=== PATIENT | female | born 2005 | race Caucasian/White ===

== ENCOUNTER 2024-01-13 10:04 | Emergency (ER) | payer BC, SELFPAY ==
--- NOTE | ~2024-01-13 | US_ITS ---
EXAMINATION: US pelvic complete DATE: 01/13/2024 11:16 INDICATION: Ovarian torsion. TECHNIQUE: Multiple transabdominal sonographic images of the pelvis were obtained. COMPARISON: None. FINDINGS: The uterus measures 7.1 x 2.9 cm. There is physiologic free fluid in the pelvis. The endometrial comp sunshine measures 7 mm in thickness. The right ovary measures 2.5 x 1.5 x 2.0 cm. The left ovary measures 4.3 x 2.6 x 2.7 cm. There is normal vascular flow in the ovaries. IMPRESSION: 1. Normal pelvis. Reviewed, dictated and finalized at location A. INTERPRETIVE RANGER IMPRESSION: 1. Normal pelvis.
[2024-01-13 10:10] VITALS: BP 138/93; PULSE 98; RESP 16; TEMP 36.6; O2SAT 100
--- NOTE | 2024-01-13 10:31 | ED_ITS ---
HPI - General Adult General Chief complaint: Abdominal Pain Stated complaint: abd pain Time Seen by Provider: 01/13/24 10:17 History of Present Illness HPI narrative: 18-year-old female presenting to the emergency department for evaluation for lower abdominal pain. Patient reports that the pain started approximately 9:00 a.m. but has since begun to improve. Patient states she has had this pain multiple times before that typically last about an hour. Patient has no prior history of ovarian cyst. Patient states she did feel like she was going to pass out did have nausea due to the pain. Patient denies any actual syncope. Patient states the pain is improved. Patient denies any current nausea. Patient denies any history of constipation or diarrhea. At time of evaluation patient declined any medications for nausea for pain control Related Data Home Medications Medication Instructions Recorded Confirmed clobetasol 0.05 % scalp solution topical 01/13/24 Allergies Allergy/AdvReac Type Severity Reaction Status Date / Time No Known Allergies Allergy Verified 01/13/24 10:40 Review of Systems Review of Systems: All systems reviewed & are unremarkable except as noted in HPI and below Exam Narrative: APPEARANCE: Well appearing, no pain, no distress, well-nourished. HEAD: normocephalic, atraumatic. EYES: PERRLA/EOMI, conjunctivae clear. NOSE: Normal no drainage EARS:TMS clear with good light reflex. THROAT: Pharynx clear, no exudate. NECK: Supple. No adenopathy, no masses. RESPIRATORY: Airway patent, respirations nonlabored. Clear to auscultation bilaterally, no rales, rhonchi, wheezing. CARDIOVASCULAR: Regular rate and rhythm without murmurs rubs or gallops. ABDOMINAL: suprapubic abdominal tenderness to palpation, no CVA tenderness MUSCULOSKELETAL: Moves all extremities. Strength/ROM intact, No edema, No calf tenderness. NEURO: Alert. Cranial nerves II through XII intact. Good gait. Good coordination SKIN: Warm, dry. Normal Color Course Vital Signs Vital signs: Vital Signs Temperature 97.9 F 01/13/24 10:10 Pulse Rate 98 01/13/24 10:10 Respiratory Rate 16 01/13/24 10:10 Blood Pressure 138/93 H 01/13/24 10:10 Pulse Oximetry 100 01/13/24 10:10 Oxygen Delivery Room Air 01/13/24 10:10 Temperature 97.9 F 01/13/24 10:10 Pulse Rate 80 01/13/24 11:30 Respiratory Rate 16 01/13/24 11:30 Blood Pressure 110/69 01/13/24 11:30 Pulse Oximetry 100 01/13/24 11:30 Oxygen Delivery Room Air 01/13/24 10:10 Medical Decision Making MDM Narrative Medical decision making narrative: 18-year-old female presents emergency department for evaluation for evaluation for nausea vomiting and diarrhea. Patient did feel improved with treatment. Patient is afebrile with no leukocytosis and a stable hemoglobin of 15.2. No acute abnormalities on the CMP. UA was concerning for infection. ultrasound was negative for ovarian torsion. Patient was treated with antibiotics for underlying UTI. Patient family were updated on the results of the workup and they are comfortable plan for discharge and close follow-up Differential Diagnosis Differential Diagnosis: nausea, vomiting, diarrhea, , UTI, ovarian cyst, ovarian torsion Vital Signs Vital Signs: Vital Signs Temperature 97.9 F 01/13/24 10:10 Pulse Rate 98 01/13/24 10:10 Respiratory Rate 16 01/13/24 10:10 Blood Pressure 138/93 H 01/13/24 10:10 Pulse Oximetry 100 01/13/24 10:10 Oxygen Delivery Room Air 01/13/24 10:10 Temperature 97.9 F 01/13/24 10:10 Pulse Rate 80 01/13/24 11:30 Respiratory Rate 16 01/13/24 11:30 Blood Pressure 110/69 01/13/24 11:30 Pulse Oximetry 100 01/13/24 11:30 Oxygen Delivery Room Air 01/13/24 10:10 Lab Data Lab results reviewed: Yes I reviewed the patient's lab results. 01/13/24 10:16 01/13/24 10:16 Labs: Lab Results 01/13/24 01/13/24 Range/Units 10:16 10:25 WBC 8.2 (4.5-10.0) K/mm3 RBC 5.09 (4.2-5.4) M/mm3 Hgb 15.2 H (12.0-15.0) g/dL Hct 44.2 (37.0-47.0) % MCV 86.8 (80-100) fl MCH 29.9 (26-34) pg MCHC 34.4 (32-36) g/dl RDW 12.3 (11.5-14.5) % Plt Count 239 (150-375) k/mm3 MPV 9.8 (7.4-10.4) fl Immature Gran % (Auto) 0.2 (0-0.5) % Neut % (Auto) 73.3 H (45.5-73.1) % Lymph % (Auto) 15.3 L (18.3-44.2) % [place] % (Auto) 5.2 (2.6-8.5) % Eos % (Auto) 5.4 H (0-4.4) % Baso % (Auto) 0.6 (0.2-1.2) % Lymph # (Auto) 1.26 (0.9-3.2) K/mm3 [place] # (Auto) 0.4 (0.1-0.6) K/mm3 Eos # (Auto) 0.4 H (0-0.3) K/mm3 Baso # (Auto) 0.1 (0.0-0.1) K/mm3 Abs Immat Gran (auto) 0.02 (0.00-0.031) K/mm3 Absolute Neuts (auto) 6.0 (1.3-6.7) K/mm3 Absolute Nucleated RBC 0.000 (0.0-0.012) K/mm3 Nucleated RBC % 0.0 (0.0-0.2) % Sodium 136 (134-143) mmol/L Potassium 3.9 (3.4-5.0) mmol/L Chloride 101 (98-107) mmol/L Carbon Dioxide 27 (22-30) mmol/L Anion Gap 8 (4-12) mmol/L BUN 14 (8-21) mg/dL Creatinine 0.70 (0.7-1.0) mg/dL Estim Creat Clear Calc 105 ml/min Estimated GFR > 60 (59 - ) Glucose 92 (65-110) mg/dL Calcium 9.2 (8.9-10.7) mg/dL Total Bilirubin 1.0 (0.2-1.3) mg/dL AST 39 H (14-36) U/L ALT 38 H (6-35) U/L Alkaline Phosphatase 64 (45-116) U/L Total Protein 9.0 H (6.3-8.6) g/dL Albumin 4.8 (3.7-5.6) g/dL Lipase 135 (23-300) U/L Urine Color Yellow (Yellow) Urine Appearance Clear (Clear) Urine pH 6.5 (5.0-9.0) Ur Specific [place] 1.023 (1.001-1.035) Urine Protein 1+ H (Negative) mg/dL Urine Glucose (UA) Negative (Negative) mg/dL Urine Ketones Trace H (Negative) mg/dL Ur Blood (Man) Negative (Negative) Urine Nitrate Negative (Negative) Urine Bilirubin Negative (Negative) Urine Urobilinogen 0.2 (<2.0) mg/dL Add Ur Microanalysis Reviewed Leukocyte Esterase Rfl Trace H (Negative) PARISH/UL Urine RBC 3-5 H (0-2) /hpf Urine WBC 6-10 H (0-3) /hpf Ur Squamous Epith Cells Few (Few) /hpf Urine Bacteria 1+ H /hpf Urine Casts 11-20 POC Urine HCG, Qual Negative (Negative) Discharge Plan Discharge Clinical Impression: Abdominal pain, UTI (urinary tract infection) Patient Disposition: Home, Self-Care Condition: Stable Instructions: Antibiotic Form, Urinary Tract Infection in Women (DC), Abdominal Pain (ED) Additional Instructions: antibiotic as directed until completed. Tylenol and ibuprofen for pain control. Pyridium as needed for urinary symptoms. Have close follow-up with your primary care physician. Prescriptions: New cephalexin 500 mg capsule 500 mg PO Q8H 7 Days Qty: 21 0RF phenazopyridine [Pyridium] 100 mg tablet 100 mg PO TID PRN (Reason: pain) Qty: 6 0RF No Action clobetasol 0.05 % solution TOPICAL Follow-up/Referrals: PHYSICIAN NOT ON STAFF,NONSTAFF [Non-Staff] -
[2024-01-13 10:33] LABS: Basophils Absolute Auto 0.1 K/mm3 (0.0-0.1); Basophils Percent Auto 0.6 % (0.2-1.2); Eosinophils Absolute Auto 0.4 K/mm3 (0-0.3); Eosinophils Percent Auto 5.4 % (0-4.4); Hematocrit 44.2 % (37.0-47.0); Hemoglobin 15.2 g/dL (12.0-15.0); Immature Granulocyte Absolute 0.02 K/mm3 (0.00-0.031); Immature Granulocyte Percent A 0.2 % (0-0.5); Lymphocytes Absolute Auto 1.26 K/mm3 (0.9-3.2); Lymphocytes Percent Auto 15.3 % (18.3-44.2); Mean Corpuscular HGB Conc 34.4 g/dl (32-36); Mean Corpuscular Hemoglobin 29.9 pg (26-34); Mean Corpuscular Volume 86.8 fl (80-100); Mean Platelet Volume 9.8 fl (7.4-10.4); Monocytes Absolute Auto 0.4 K/mm3 (0.1-0.6); Monocytes Percent Auto 5.2 % (2.6-8.5); Neutrophils Percent Auto 73.3 % (45.5-73.1); Platelet Count Result 239 k/mm3 (150-375); Red Blood Count 5.09 M/mm3 (4.2-5.4); Red Cell Distribution Width 12.3 % (11.5-14.5); White Blood Count 8.2 K/mm3 (4.5-10.0)
[2024-01-13 10:43] LABS: BEDSIDEPREGUCG Negative (Negative)
[2024-01-13 10:48] LABS: Alanine Aminotransferase 38 U/L (6-35); Albumin Level 4.8 g/dL (3.7-5.6); Alkaline Phosphatase 64 U/L (45-116); Anion Gap 8 mmol/L (4-12); Aspartate Amino Transferase 39 U/L (14-36); Blood Urea Nitrogen 14 mg/dL (8-21); Calcium 9.2 mg/dL (8.9-10.7); Carbon Dioxide 27 mmol/L (22-30); Chloride 101 mmol/L (98-107); Estimated CRCL calculation 105 ml/min; Estimated Glomerular Filt Rate > 60; Glucose 92 mg/dL (65-110); Lipase 135 U/L (23-300); Potassium 3.9 mmol/L (3.4-5.0); Sodium 136 mmol/L (134-143)
[2024-01-13 10:52] LABS: Add Urine Microscopic? YES; Appearance Urine Clear (Clear); Bacteria Urine 1+ /hpf; Bilirubin Urine Negative (Negative); Blood Urine Negative (Negative); Color Urine Yellow (Yellow); Glucose Urine UA Negative (Negative); Ketones Urine Trace mg/dL (Negative); Leukocyte Esterase Ur Trace LEU/UL (Negative); Need Manual Microscopic Reviewed; Nitrate Urine Negative (Negative); Protein Urine 1+ mg/dL (Negative); Specific Grav Ur 1.023 (1.001-1.035); Squamous Epithelial Cell Urine Few /hpf (Few); Urobilinogen Urine 0.2 mg/dL (<2.0); pH Urine 6.5 (5.0-9.0)
[2024-01-13 11:30] VITALS: BP 110/69; PULSE 80; RESP 16; O2SAT 100
== END 2024-01-13 12:41 | disposition home or self-care (01) ==
PROVIDERS: Emergency Provider Emergency Medicine
DX: N39.0 Urinary tract infection, site not specified (principal); R10.30 Lower abdominal pain, unspecified
CPT/HCPCS: 36415; 76856; 80053; 81001; 81025; 83690; 85025; 87086; 96365; 99284; J0696